=== PATIENT | female | born 1985 | race African-American/Black ===

== ENCOUNTER 2019-04-21 05:53 | Inpatient (IN) | payer OTHER ==
[2019-04-21] MEDS ORDERED: Butorphanol Tartrate 1 MG/ML VIAL SLOW IVP PRN (06:19)
[2019-04-21] MEDS ORDERED: NS / Oxytocin 40 units/1000ml 1,000 ML IV PRN (06:19)
[2019-04-21] MEDS ORDERED: Misoprostol 200 MCG TAB PR PRN (06:19)
[2019-04-21] MEDS ORDERED: hydrALAZINE 20 MG/ML VIAL SLOW IVP PRN ×2 (06:19→18:48)
[2019-04-21] MEDS ORDERED: Acetaminophen 500 MG TAB PO PRN (06:19)
[2019-04-21] MEDS ORDERED: Ondansetron PF 4 MG/2 ML Vial IVP PRN ×3 (06:19→18:48)
[2019-04-21] MEDS ORDERED: Zolpidem Tartrate 5 MG TAB PO PRN ×2 (06:19→18:48)
[2019-04-21] MEDS ORDERED: Ibuprofen 800 MG TAB PO PRN (06:19)
[2019-04-21] MEDS ORDERED: Acetaminophen/Codeine 30-300mg Tablet PO PRN ×2 (06:19)
[2019-04-21] MEDS ORDERED: Promethazine HCl 25 MG/ML VIAL IM PRN ×2 (06:19→09:19)
[2019-04-21] MEDS ORDERED: Docusate 100 MG CAP PO PRN (06:19)
[2019-04-21] MEDS ORDERED: Diphenoxylate HCl/Atropine Tablet PO PRN ×2 (06:19)
[2019-04-21] MEDS ORDERED: Lidocaine 1% (PF) 30 ML VIAL SC PRN (06:19)
[2019-04-21] MEDS ORDERED: NS w/ Oxytocin 10 units 500 ML IV SCH (06:19)
[2019-04-21 06:29] VITALS: BMI 28.3
[2019-04-21 06:51] LABS: Hemoglobin 10.9 g/dL (12.0-16.0); Mean Corpuscular HGB CONC 32.5 g/dL (32.0-36.0); Mean Corpuscular Hemoglobin 30.6 pg (27.0-31.0); Mean Corpuscular Volume 94.1 fL (78.0-98.0); Mean Platelet Volume 8.2 fL (7.4-10.4); Platelet Count 168 thou/uL (130-400); RBC Distribution Width 11.9 % (11.5-14.5); Red Blood Cell (RBC) Count 3.58 mill/uL (4.20-5.40)
[2019-04-21 07:17] LABS: Syphilis Antibody Nonreactive (Nonreactive); Syphilis Antibody Index 0.05 S/CO (<1.00 Non-Reactive)
[2019-04-21 07:18] LABS: HBSAg Index 0.31 S/CO (0-0.99); Hep B Surf Ag Non-Reactive S/CO (NonReactive)
[2019-04-21] MEDS ORDERED: Fentanyl 4 mcg/Bup 0.1% Cadd 100 ML ONE ×2 (08:41→15:35)
[2019-04-21] MEDS ORDERED: Lidocaine 1.5%/Epinephrine 1:200,000 5 ML AMPUL IJ ONE (08:42)
[2019-04-21] MEDS ORDERED: Lactated Ringer's 500 ML IV PRN (09:19)
[2019-04-21] MEDS ORDERED: diphenhydrAMINE 50 MG/ML VIAL IVP PRN (09:19)
[2019-04-21] MEDS ORDERED: Acetaminophen 325 MG TAB PO PRN (09:19)
[2019-04-21] MEDS ORDERED: Naloxone HCl 0.4 mg/ml Vial IVP PRN ×2 (09:19)
[2019-04-21] MEDS ORDERED: ePHEDrine/0.9% NaCl/PF SYRINGE 50 mg/10 ml SLOW IVP PRN (09:19)
[2019-04-21] MEDS ORDERED: Fentanyl 4 mcg/Bupivacaine 0.1% Cassette 100 ML EPIDURAL SCH (09:30)
[2019-04-21] MEDS ORDERED: Communication Order-Pharmacy FS SCH (09:30)
[2019-04-21] MEDS: Lactated Ringer's 1,000 ML IV SCH ×2 (09:53→13:16)
[2019-04-21] MEDS ORDERED: Milk Of Magnesia 30 ML UDCUP PO PRN (18:48)
[2019-04-21] MEDS ORDERED: diphenhydrAMINE 25 MG CAP PO PRN (18:48)
[2019-04-21] MEDS ORDERED: Bisacodyl 10 MG SUPP PR PRN (18:48)
[2019-04-21] MEDS ORDERED: Preparation H Ointment 28 GM TUBE PR PRN (18:48)
[2019-04-21] MEDS ORDERED: Benzocaine-Menthol 82.5 ML CAN TOP PRN (18:48)
[2019-04-21] MEDS ORDERED: Lanolin Ointment 7 GM TUBE TOP PRN (18:48)
[2019-04-21] MEDS ORDERED: traMADol HCl 50 MG TAB PO PRN (18:52)
[2019-04-21] MEDS ORDERED: NS / Oxytocin 40 units/1000ml 1,000 ML IV SCH (19:00)
[2019-04-21] MEDS ORDERED: Adacel (T-DAP) 0.5 ML SYRINGE IM ONE (21:00)
[2019-04-21] MEDS: Ibuprofen 800 MG TAB PO SCH (21:47)
[2019-04-21] MEDS: Docusate Calcium (SURFAK) 240 MG CAP PO SCH (21:47)
[2019-04-22] MEDS: Ibuprofen 800 MG TAB PO SCH ×3 (06:02→21:59)
[2019-04-22] MEDS: Prenatal Vitamin 1 TAB PO SCH (10:09)
[2019-04-22] MEDS: Ferrous Sulfate 325 MG TAB PO SCH ×2 (10:10→17:41)
[2019-04-22] MEDS: Docusate Calcium (SURFAK) 240 MG CAP PO SCH ×2 (10:10→21:59)
[2019-04-23] MEDS: Ibuprofen 800 MG TAB PO SCH (05:58)
[2019-04-23 08:02] VITALS: BP 111/70; TEMP 98.7
[2019-04-23] MEDS: Ferrous Sulfate 325 MG TAB PO SCH (08:50)
[2019-04-23] MEDS: Prenatal Vitamin 1 TAB PO SCH (09:09)
[2019-04-23] MEDS: Docusate Calcium (SURFAK) 240 MG CAP PO SCH (09:09)
== END 2019-04-23 13:46 | disposition home or self-care (01) | DRG 807 ==
LOC: L&D 05:53 → 3SW 20:44
PROVIDERS: ADMIT Obstetrics & Gynecology; ATTEND Obstetrics & Gynecology
PROC: 10907ZC Drainage of Amniotic Fluid, Therapeutic from Products of Conception, Via Natural or Artificial Opening (ICD-10-PCS; principal; 2019-04-21)
PROC: 10E0XZZ Delivery of Products of Conception, External Approach (ICD-10-PCS; 2019-04-21)
PROC: 3E033VJ Introduction of Other Hormone into Peripheral Vein, Percutaneous Approach (ICD-10-PCS; 2019-04-21)
DX: O99.344 Other mental disorders complicating childbirth (principal); Z37.0 Single live birth; Z3A.39 39 weeks gestation of pregnancy; F41.9 Anxiety disorder, unspecified; F32.9 Major depressive disorder, single episode, unspecified; Z88.8 Allergy status to other drugs, medicaments and biological substances
CPT/HCPCS: 36415; 51702; 85027; 86780; 86850; 86900; 86901; 87340; J1200; J2001; J2590; J3490